=== PATIENT | male | born 2000 | race Caucasian/White ===

== ENCOUNTER 2024-01-23 16:28 | Emergency (ER) | payer SELFPAY ==
[~2024-01-23] VITALS: Ht 182.9 cm; Wt 100.0 kg
[2024-01-23 16:32] VITALS: O2SAT 99
[2024-01-23 17:24] VITALS: BP 118/62; PULSE 57; RESP 16; TEMP 98.3
[2024-01-23] MEDS: KETOROLAC 30MG/ML VIAL IV STA (17:25)
[2024-01-23] MEDS: SODIUM CHLORIDE 0.9% 1,000 ML IV ONE (17:26)
== END 2024-01-23 17:25 | disposition left against medical advice (07) ==
LOC: ER 16:28
DX: R07.9 Chest pain, unspecified (principal); I25.2 Old myocardial infarction; F15.90 Other stimulant use, unspecified, uncomplicated; F12.90 Cannabis use, unspecified, uncomplicated
CPT/HCPCS: 99283; 71045; 93005; J7030

== ENCOUNTER 2025-02-11 18:05 | Emergency (ER) | payer OTHER ==
[~2025-02-11] VITALS: Ht 177.8 cm; Wt 78.0 kg
[2025-02-11 18:16] VITALS: O2SAT 100
[2025-02-11] MEDS ORDERED: TUSSL MT (20:13)
[2025-02-11 20:48] VITALS: BP 124/64; PULSE 79; RESP 12; TEMP 36.9; O2SAT 100
== END 2025-02-11 20:48 ==
LOC: ER 18:05
DX: R05.9 Cough, unspecified (principal); R07.9 Chest pain, unspecified; F14.90 Cocaine use, unspecified, uncomplicated; F15.90 Other stimulant use, unspecified, uncomplicated
CPT/HCPCS: 71045; 93005; 99283; 99285